=== PATIENT | female | born 1935 | race Caucasian/White ===

== ENCOUNTER 2024-08-11 19:33 | Inpatient (IN) | payer MEDICARE, OTHER ==
[~2024-08-11 19:33] MED LIST: Iopamidol 370 76% 100 ML VIAL ONE; Iopamidol-370 76% 500 ML MDV (1 ML CHARGE) ONE
[2024-08-11] MEDS ORDERED: PROPOFOL 200 MG/20 ML VIAL ONE (20:00)
[2024-08-11] MEDS ORDERED: Rocuronium Bromide 10 MG/ML (10ML VIAL) ONE (20:00)
[2024-08-11] MEDS ORDERED: Lidocaine 1% PF 5 ML VIAL ONE (20:00)
[2024-08-11] MEDS ORDERED: ePHEDrine Sulfate 50 MG/10 ML VIAL ONE (20:00)
[2024-08-11 20:08] LABS: #Basophils 0.05 10x3/uL (0.0-0.2); %Eosinophils 1.9 % (0.0-10.0); %Lymphocytes 44.7 % (21.0-51.0); %Monocytes 9.9 % (0.0-10.0); %Neutrophils 42.3 % (42.0-75.0); Hematocrit 36.1 % (36.0-47.0); Hemoglobin 12.1 g/dL (12.0-16.0); Mean Corpuscular HGB CONC 33.5 g/dL (32.0-36.0); Mean Corpuscular Hemoglobin 29.5 pg (27.0-31.0); Mean Platelet Volume 9.7 fL (7.4-10.4); Platelet Count 183 10x3/uL (130-400); RBC Distribution Width 14.8 % (11.5-14.5)
[2024-08-11 20:20] LABS: ALT (SGPT) Less than 5 U/L (8-55); AST (SGOT) 15 U/L (5-34); Albumin 3.8 g/dL (3.4-4.8); Alkaline Phosphatase 39 U/L (40-110); Anion Gap 14 mmol/L (10-20); BUN (Urea Nitrogen) 23 mg/dL (9.8-20.1); Bilirubin, Total 0.6 mg/dL (0.2-1.2); Calc. Creatinine Clearance 0 mL/min (70-130); Calcium 9.2 mg/dL (7.8-10.44); Carbon Dioxide 20 mmol/L (23-31); Chloride 103 mmol/L (98-107); Estimated GFR 60; Globulin 2.5 g/dL (2.4-3.5); Glucose 113 mg/dL (83-110); Potassium 3.8 mmol/L (3.5-5.1); Protein, Total 6.3 g/dL (5.8-8.1); Sodium 133 mmol/L (136-145)
[2024-08-11] MEDS ORDERED: Heparin 10,000 UNITS/ 10 ML VIAL ONE (20:24)
[2024-08-11 20:26] LABS: INR-International Normal Ratio 1.3; PTT 32.3 sec (22.9-36.1)
[2024-08-11 20:28] LABS: Troponin I 0.013 ng/mL (< 0.028)
[2024-08-11] MEDS ORDERED: fentaNYL PF 100 MCG/2 ML SYRINGE ONE (20:43)
[2024-08-11] MEDS ORDERED: SUGAMMADEX SODIUM 200 MG/2 ML VIAL ONE (22:06)
[2024-08-11] MEDS ORDERED: Labetalol HCl 100 MG/20 ML VIAL SLOW IVP PRN (22:08)
[2024-08-11] MEDS ORDERED: hydrALAZINE 20 MG/ML VIAL SLOW IVP PRN (22:08)
[2024-08-11] MEDS ORDERED: niCARdipine 25 MG in Sodium Chloride 0.9% 250 ML 250 ML IVPB PRN (22:08)
[2024-08-11] MEDS ORDERED: Glucagon 1 MG/ML KIT IM PRN (22:52)
[2024-08-11] MEDS ORDERED: Dextrose 50% Abboject 50 ML SYRINGE SLOW IVP PRN (22:52)
[2024-08-11] MEDS ORDERED: Dextrose 5% in Water 1,000 ML IV PRN (22:52)
[2024-08-11] MEDS: Sodium Chloride 0.9% 1,000 ML IV SCH (23:16)
[2024-08-11] MEDS: Scopolamine 1 mg/72 hour Patch TD SCH (23:16)
[2024-08-12 04:40] LABS: #Basophils 0.03 10x3/uL (0.0-0.2); #Eosinphils Less than 0.03 10x3/uL (0.0-0.7); %Basophils 0.5 % (0.0-1.0); %Eosinophils 0.3 % (0.0-10.0); %Lymphocytes 22.8 % (21.0-51.0); %Monocytes 8.3 % (0.0-10.0); %Neutrophils 67.9 % (42.0-75.0); Hematocrit 36.6 % (36.0-47.0); Hemoglobin 12.3 g/dL (12.0-16.0); Mean Corpuscular HGB CONC 33.6 g/dL (32.0-36.0); Mean Corpuscular Hemoglobin 29.7 pg (27.0-31.0); Mean Corpuscular Volume 88.4 fL (78.0-98.0); Mean Platelet Volume 9.7 fL (7.4-10.4); Platelet Count 173 10x3/uL (130-400); RBC Distribution Width 14.6 % (11.5-14.5); Red Blood Cell (RBC) Count 4.14 mill/uL (4.20-5.40)
[2024-08-12 04:54] LABS: Hemoglobin A1c 5.5 % (4.0-6.0)
[2024-08-12 04:56] LABS: Anion Gap 12 mmol/L (10-20); BUN (Urea Nitrogen) 15 mg/dL (9.8-20.1); Calc. Creatinine Clearance 60 mL/min (70-130); Calcium 8.6 mg/dL (7.8-10.44); Carbon Dioxide 19 mmol/L (23-31); Cardiac Risk 2.1 (Less than 4.5); Chloride 109 mmol/L (98-107); Cholesterol 102 mg/dl (< 200 Desired); Estimated GFR 84; Glucose 124 mg/dL (83-110); HDL Cholesterol 49 mg/dL (>60 Neg Risk); LDL Cholesterol, Calculated 43 mg/dL; Potassium 3.3 mmol/L (3.5-5.1); Sodium 137 mmol/L (136-145); Triglycerides 50 mg/dL (Less than 150)
[2024-08-12] MEDS: Famotidine/PF 20 mg/2ml Vial SLOW IVP SCH (08:37)
[2024-08-12] MEDS ORDERED: Electrolyte Replacement Protocol 1 EACH FS SCH (11:15)
[2024-08-12] MEDS: Potassium Chloride 20 MEQ in Premix 1 BAG IVPB SCH (11:21)
[2024-08-12 20:23] LABS: Potassium 3.8 mmol/L (3.5-5.1)
[2024-08-13 09:01] LABS: #Basophils Less than 0.03 10x3/uL (0.0-0.2); %Basophils 0.4 % (0.0-1.0); %Eosinophils 1.3 % (0.0-10.0); %Lymphocytes 29.5 % (21.0-51.0); %Monocytes 7.6 % (0.0-10.0); Hematocrit 35.7 % (36.0-47.0); Hemoglobin 11.9 g/dL (12.0-16.0); Mean Corpuscular HGB CONC 33.3 g/dL (32.0-36.0); Mean Corpuscular Hemoglobin 29.7 pg (27.0-31.0); Mean Platelet Volume 9.2 fL (7.4-10.4); Platelet Count 142 10x3/uL (130-400); RBC Distribution Width 14.9 % (11.5-14.5); Red Blood Cell (RBC) Count 4.01 mill/uL (4.20-5.40)
[2024-08-13 09:18] LABS: Anion Gap 12 mmol/L (10-20); BUN (Urea Nitrogen) 9 mg/dL (9.8-20.1); Calc. Creatinine Clearance 60 mL/min (70-130); Calcium 8.7 mg/dL (7.8-10.44); Carbon Dioxide 21 mmol/L (23-31); Chloride 109 mmol/L (98-107); Estimated GFR 85; Glucose 91 mg/dL (83-110); Potassium 3.7 mmol/L (3.5-5.1); Sodium 138 mmol/L (136-145)
[2024-08-13] MEDS: Aspirin Chewable 81 MG TAB PO SCH (14:10)
[2024-08-13] MEDS: Apixaban 5 MG TAB PO SCH (21:56)
[2024-08-13] MEDS: Atorvastatin Calcium 40 MG TAB PO SCH (21:56)
[2024-08-14] MEDS: Aspirin Chewable 81 MG TAB PO SCH (09:48)
[2024-08-15] MEDS: Carvedilol 6.25 MG TAB PO SCH ×2 (10:10→17:32)
[2024-08-15] MEDS: Lisinopril 10 MG TAB PO SCH (21:25)
[2024-08-16 00:54] VITALS: BMI 23.7
[2024-08-16] MEDS: Gabapentin 100 MG CAP PO SCH (20:25)
[2024-08-17] MEDS: Amlodipine 5 MG TAB PO SCH (08:28)
[2024-08-17 11:20] VITALS: BMI 24.4
[2024-08-18] MEDS: Amlodipine 5 MG TAB PO SCH (08:36)
[2024-08-18 08:46] VITALS: TEMP 98.3
[2024-08-18 11:23] VITALS: BP 154/84
== END 2024-08-18 13:24 | DRG 24 ==
LOC: ERS 19:33 → SDC/OP 21:15 → CCU 21:34 → 2SE 08-13 19:43
PROVIDERS: ADMIT Neurological Surgery; ATTEND Neurological Surgery
PROC: 03CG3ZZ Extirpation of Matter from Intracranial Artery, Percutaneous Approach (ICD-10-PCS; principal; 2024-08-11)
DX: I63.512 Cerebral infarction due to unspecified occlusion or stenosis of left middle cerebral artery (principal); E87.1 Hypo-osmolality and hyponatremia; G81.93 Hemiplegia, unspecified affecting right nondominant side; I63.312 Cerebral infarction due to thrombosis of left middle cerebral artery; I10 Essential (primary) hypertension; E78.5 Hyperlipidemia, unspecified; I48.91 Unspecified atrial fibrillation; R00.0 Tachycardia, unspecified; Z79.01 Long term (current) use of anticoagulants; Z98.890 Other specified postprocedural states; Z88.5 Allergy status to narcotic agent; Z91.040 Latex allergy status; Z79.899 Other long term (current) drug therapy
CPT/HCPCS: 36415; 36416; 61645; 70450; 70496; 70498; 70551; 74230; 80048; 80053; 80061; 83036; 84443; 84484; 85025; 85610; 85730; 93005; 93306; 94760; C1769; C1887; C1894; J1644; J2704; J3480; J3490; J7030; Q9967